=== PATIENT | male | born 1995 | race Caucasian/White ===

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

== ENCOUNTER 2017-02-17 23:10 | Emergency (ER) | payer MEDICAID ==
[2017-02-17 23:19] VITALS: BP 128/71
--- NOTE | 2017-02-17 23:48 | XRAY Preliminary Report ---
Exam: XR Ankle 3 View LT IMPRESSION: No evidence of fracture or dislocation. [facility] SITE ID: [id number]
--- NOTE | 2017-02-17 23:51 | XRAY Report ---
EXAM: LEFT ANKLE RADIOGRAPHY EXAM DATE: 02/17/2017 11:37 PM. CLINICAL HISTORY: Pain swelling s/p glf. COMPARISON: None. TECHNIQUE: 3 views. FINDINGS: Bones: No fracture or focal bony lesion. Joints: No evidence of dislocation. Soft Tissues: There is lateral ankle soft tissue swelling. IMPRESSION: No evidence of fracture or dislocation. [facility] Referring Provider Line: [phone] SITE ID: [id number]
--- NOTE | 2017-02-18 00:11 | ED Physician Documentation ---
PD HPI LOWER EXT INJURY - Stated complaint Stated Complaint: LT ANKLE INJURY - Chief complaint Chief Complaint: Ext Problem - History obtained from History obtained from: Patient, Family - History of Present Illness PD HPI LOW EXT INJURY LOCATION: Left, Ankle Type of injury: Twist Where injury occurred: Home Timing - onset: Today Timing - duration: Hours Timing - details: Abrupt onset, Still present Improved by: Rest, Immobilization Worsened by: Moving, Palpating Associated symptoms: Swelling. No: Weakness Contributing factors: No: Anticoagulated, Work related Similar symptoms before: Diagnosis (ankle sprain/fracture) Recently seen: Emergency Dept (Seen in the ED for ankle sprain on the right.) - Additional information Additional information: 21 y/o male walking down steps twisted his left ankle with swelling and pain. He did have a severe sprain to this ankle and was on crutches for about a month with sprain to the medial ligaments. He has injured his right ankle as well and this healed up normally. Review of Systems Constitutional: denies: Fever Respiratory: denies: Cough GI: denies: Vomiting Skin: denies: Rash Musculoskeletal: reports: Joint pain, Joint swelling, Pain with weight bearing Neurologic: denies: Generalized weakness, Focal weakness, Numbness PD PAST MEDICAL HISTORY - Past Medical History Cardiovascular: None Respiratory: Asthma Neuro: None Endocrine/Autoimmune: None GI: None : None HEENT: None Psych: ADD/ADHD Musculoskeletal: None Derm: None - Past Surgical History Past Surgical History: No - Present Medications Home Medications: Ambulatory Orders Medication Instructions Recorded Confirmed Albuterol 1 puffs INH PRN PRN 02/17/17 02/17/17 - Allergies Allergies/Adverse Reactions: Allergies Allergy/AdvReac Type Severity Reaction Status Date / Time atomoxetine HCl * AdvReac Intermediate Emesis Verified 02/17/17 23:15 [From Strattera] methylphenidate HCl * AdvReac Intermediate Emesis Verified 02/17/17 23:15 [From Concerta] - Social History Does the pt smoke?: Yes Smoking Status: Current every day smoker Does the pt drink ETOH?: No Does the pt have substance abuse?: No - Immunizations Immunizations are current?: Yes - POLST Patient has POLST: No PD ED PE NORMAL - Vitals Vital signs reviewed: Yes (normal ) - General General: Alert and oriented X 3, No acute distress, Well developed/nourished - HEENT HEENT: Atraumatic, PERRL - Respiratory Respiratory: No respiratory distress - Derm Derm: Normal color, Warm and dry, No rash - Extremities Extremities: Other (There is swelling and tenderness to the lateral malleolus and the proximal 5th. There is tenderness medially as well. Distal N/V is intact. ) - Neuro Neuro: No motor deficit, No sensory deficit - Psych Psych: Normal mood, Normal affect Results - Vitals Vitals: Vital Signs - 24 hr 02/17/17 23:12 Temperature 36.3 C L Heart Rate 87 Respiratory 18 Rate Blood Pressure 128/71 O2 Saturation 98 Oxygen O2 Source Room air - Rads (name of study) left ankle Radiology: Prelim report reviewed (Impression: No evidence of fracture or dislocation.), EMP read indepedently (No evidence of fracture to the proximal 5th. ), See rad report Procedures - Splint (location) lft ankle Splint applied by: Tech Type of splint: Ankle airsplint Other: Patient tolerated well, No complications, Neurovascular intact, Good alignment, Crutches provided PD MEDICAL DECISION MAKING - ED course Complexity details: reviewed old records, reviewed results, re-evaluated patient , considered differential, d/w patient, d/w family ED course: 21 y/o male with a left ankle sprain without fracture has a lot of swelling and trouble with this healing in the past. He is placed into an air stirrup and on crutches. Departure - Departure Disposition: 01 Home, Self Care Clinical Impression: Ankle sprain Qualifiers: Encounter type: initial encounter Involved ligament of ankle: calcaneofibular ligament Laterality: left Qualified Code(s): S93.412A - Sprain of calcaneofibular ligament of left ankle, initial encounter Condition: Stable Instructions: ED Sprain Ankle W X Ray Follow-Up: [facility] [Provider Group] Forms: Activity restrictions
== END 2017-02-18 00:23 | disposition home or self-care (01) ==
LOC: ED 23:10
DX: S93.412A Sprain of calcaneofibular ligament of left ankle, initial encounter (principal); X50.1XXA Overexertion from prolonged static or awkward postures, initial encounter; Y93.01 Activity, walking, marching and hiking; Y92.009 Unspecified place in unspecified non-institutional (private) residence as the place of occurrence of the external cause; F17.200 Nicotine dependence, unspecified, uncomplicated
CPT/HCPCS: 29515; 99283

== ENCOUNTER 2018-02-04 19:28 | Emergency (ER) | payer MEDICAID ==
[2018-02-04 19:33] VITALS: BP 126/74
--- NOTE | 2018-02-04 20:22 | ED Physician Documentation ---
PD HPI HEENT - Stated complaint Stated Complaint: SORE THROAT/NO SWALLOW - Chief complaint Chief Complaint: Heent - History obtained from History obtained from: Patient - History of Present Illness Timing - onset: How many weeks ago (1) Timing - duration: Weeks (1) Timing - details: Abrupt onset Pain level now: 6 Location: Throat Improves: Nothing Worsens: Swalllowing Associated symptoms: Fever (subjective) Similar symptoms before: Has not had sx before Recently seen: Not recently seen Review of Systems Constitutional: reports: Fever (subjective), Chills, Sweats Ears: denies: Ear pain Nose: reports: Congestion Throat: reports: Sore throat Respiratory: denies: Dyspnea, Cough GI: denies: Abdominal Pain PD PAST MEDICAL HISTORY - Past Medical History Past Medical History: Yes Cardiovascular: None Respiratory: Asthma Neuro: None Endocrine/Autoimmune: None GI: None : None HEENT: None Psych: ADD/ADHD Musculoskeletal: None Derm: None - Past Surgical History Past Surgical History: No - Present Medications Home Medications: Ambulatory Orders Medication Instructions Recorded Confirmed Albuterol 1 puffs INH PRN PRN 02/17/17 02/17/17 - Allergies Allergies/Adverse Reactions: Allergies Allergy/AdvReac Type Severity Reaction Status Date / Time atomoxetine HCl * AdvReac Intermediate Emesis Verified 02/04/18 19:33 [From Strattera] methylphenidate HCl * AdvReac Intermediate Emesis Verified 02/04/18 19:33 [From Concerta] - Social History Does the pt smoke?: Yes Smoking Status: Current every day smoker Does the pt drink ETOH?: No Does the pt have substance abuse?: Yes Substance Use and Type: Marijuana - Immunizations Immunizations are current?: Yes - POLST Patient has POLST: No PD ED PE NORMAL - Vitals Vital signs reviewed: Yes - General General: Alert and oriented X 3, No acute distress, Well developed/nourished - HEENT HEENT: Ears normal, Moist mucous membranes, Pharynx benign - Neck Neck: Supple, no meningeal sign - Respiratory Respiratory: No respiratory distress, Clear bilaterally Results - Vitals Vitals: Oxygen O2 Source Room air - Labs Labs: Microbiology 02/04/18 19:34 Group A Strep Throat Culture - Final Throat Beta Hemolytic Strep Group A Laboratory Tests 02/04/18 19:34 Group A Strep Rapid Negative PD MEDICAL DECISION MAKING - ED course Complexity details: reviewed results, re-evaluated patient, considered differential, d/w patient Departure - Departure Disposition: 01 Home, Self Care Clinical Impression: Pharyngitis Qualifiers: Pharyngitis/tonsillitis etiology: unspecified etiology Qualified Code(s): J02.9 - Acute pharyngitis, unspecified Condition: Good Instructions: ED Pharyngitis Viral Report Pending Follow-Up: [facility] [Provider Group] [facility] [Provider Group] Comments: Take ibuprofen 400 mg every 4 hours or 600mg every 6 hours as needed for pain or fever. Forms: Activity restrictions Discharge Date/Time: 02/04/18 20:57
[2018-02-04] MEDS ORDERED: HYDROcod/ACET 5/325 Prepack 4 PO STA (20:35)
[2018-02-04] MEDS ORDERED: IBUPROFEN 600 MG TABLET PO STA (20:35)
[2018-02-04] MEDS ORDERED: DEXAMETHASONE 10 MG/ML VIAL PO STA (20:35)
== END 2018-02-04 20:57 | disposition home or self-care (01) ==
LOC: ED 19:28
DX: J02.9 Acute pharyngitis, unspecified (principal); J45.909 Unspecified asthma, uncomplicated; F17.200 Nicotine dependence, unspecified, uncomplicated
CPT/HCPCS: 87070; 87077; 87430; 99282; 99283; A9270

== ENCOUNTER 2018-02-15 00:26 | Outpatient (CLI) | payer MEDICAID | END 2018-02-15 00:27 | disposition critical access hospital (66) | LOC: EMS 00:26 | PROVIDERS: ATTEND Surgery | DX: R45.6 Violent behavior (principal) | CPT/HCPCS: A0425; A0429 ==

== ENCOUNTER 2018-02-15 00:42 | Emergency (ER) | payer MEDICAID ==
[2018-02-15 01:17] LABS: BASOPHILS # (AUTO) 0.1 10^3/uL (0.0-0.1); EOSINOPHILS # (AUTO) 0.2 10^3/uL (0.0-0.7); EOSINOPHILS % (AUTO) 1.3 %; HGB - HEMOGLOBIN 12.8 g/dL (14.0-18.0); LYMPHOCYTES # (AUTO) 3.2 10^3/uL (1.5-3.5); LYMPHOCYTES % (AUTO) 21.3 %; MEAN CORPUSCULAR HGB CONC 32.7 g/dL (32.0-36.0); MEAN CORPUSCULAR VOLUME 88.9 fL (80.0-94.0); MEAN PLATELET VOLUME 7.8 fL (7.4-11.4); MONOCYTES # (AUTO) 1.2 10^3/uL (0.0-1.0); MONOCYTES % (AUTO) 8.1 %; NEUTROPHILS # (AUTO) 10.3 10^3/uL (1.5-6.6); NEUTROPHILS % (AUTO) 68.3 %; PLT - PLATELET COUNT 373 10^3/uL (130-450); RED CELL DISTRIBUTION WIDTH 13.2 % (12.0-15.0); WHITE BLOOD COUNT 15.1 x10^3/uL (4.8-10.8)
[2018-02-15 01:18] LABS: MUDS CUTOFF CONCENTRATIONS CUTOFF CONC BELOW:
[2018-02-15 01:22] LABS: ALBUMIN 4.2 g/dL (3.2-5.5); ALBUMIN/GLOBULIN RATIO 1.4 (1.0-2.2); BILIRUBIN,TOTAL 0.6 mg/dL (0.2-1.0); CALCIUM 8.6 mg/dL (8.5-10.3); CREATININE 0.8 mg/dL (0.6-1.2); TOTAL PROTEIN 7.3 g/dL (6.7-8.2)
[2018-02-15 01:29] LABS: AMPHETAMINE SCREEN,URINE NEGATIVE (NEGATIVE); BENZODIAZEPINES SCREEN, URINE NEGATIVE (NEGATIVE); COCAINE SCREEN URINE NEGATIVE (NEGATIVE); METHADONE SCREEN, URINE NEGATIVE (NEGATIVE); METHAMPHETAMINES SCREEN, URINE NEGATIVE (NEGATIVE); OPIATE SCREEN, URINE NEGATIVE (NEGATIVE); OXYCODONE SCREEN, URINE NEGATIVE (NEGATIVE); PROPOXYPHENE SCREEN, URINE NEGATIVE (NEGATIVE); TRICYCLIC ANTIDEPRESSANT,URINE NEGATIVE (NEGATIVE)
--- NOTE | 2018-02-15 01:31 | ED Physician Documentation ---
PD HPI ALTERED MENTAL STATUS - Stated complaint Stated Complaint: AGGRESSIVE/ETOH - Chief complaint Chief Complaint: MHE - History obtained from History obtained from: EMS, Police - History of Present Illness Timing - onset: Today Contributing factors: Intoxicated [place]line status: Alert and oriented X 3 Recently seen: Not recently seen - Additional information Additional information: Patient is a 22 year old male brought in by police and ems for altered mental status, agitation and vomiting. according to ems and police, neighbors or roomates called police becasue the patient was aggravated and aggressive. patient was found to be intoxicated and vomiting. so he was brought in for evaluation. Upon initial evaluation in the emergency department patient was intoxicated but maintaining his airway. Review of Systems Unable to obtain: Intoxicated PD PAST MEDICAL HISTORY - Past Medical History Past Medical History: Yes Cardiovascular: None Respiratory: Asthma Endocrine/Autoimmune: None GI: None : None HEENT: None Psych: ADD/ADHD Musculoskeletal: None Derm: None - Past Surgical History Past Surgical History: No - Present Medications Home Medications: Ambulatory Orders Medication Instructions Recorded Confirmed Albuterol 1 puffs INH PRN PRN 02/17/17 02/17/17 - Allergies Allergies/Adverse Reactions: Allergies Allergy/AdvReac Type Severity Reaction Status Date / Time atomoxetine HCl * AdvReac Intermediate Emesis Verified 02/04/18 19:33 [From Strattera] methylphenidate HCl * AdvReac Intermediate Emesis Verified 02/04/18 19:33 [From Concerta] - Social History Does the pt smoke?: Yes Smoking Status: Current every day smoker Does the pt drink ETOH?: No Does the pt have substance abuse?: Yes - Immunizations Immunizations are current?: Yes - POLST Patient has POLST: No PD ED PE NORMAL - HEENT HEENT: Atraumatic - Cardiac Cardiac: RRR - Respiratory Respiratory: No respiratory distress - Abdomen Abdomen: Soft, Non distended - Extremities Extremities: No deformity, No tenderness to palpate PD ED PE EXPANDED - General General: Other (intoxicated, minimally responsive vomitus around mouth) - GCS Eye Opening: To Pain Motor: Localizes to Pain Verbal: Incomprehensible Total: 9 - Psych Psych: Intoxicated / AOB Results - Vitals Vitals: Vital Signs - 24 hr 02/15/18 02/15/18 02/15/18 00:42 01:20 01:53 Temperature 36.3 C L Heart Rate 72 72 73 Respiratory 22 18 19 Rate Blood Pressure 110/61 104/54 L 107/56 L O2 Saturation 97 97 97 02/15/18 02/15/18 02/15/18 03:01 05:01 06:08 Temperature Heart Rate 72 62 62 Respiratory 18 16 17 Rate Blood Pressure 100/50 L 103/51 L 107/65 O2 Saturation 97 99 100 Oxygen O2 Source Room air - Labs Labs: Laboratory Tests 02/15/18 02/15/18 02/15/18 01:00 01:00 01:08 WBC 15.1 H RBC 4.40 L Hgb 12.8 L Hct 39.1 L MCV 88.9 MCH 29.0 MCHC 32.7 RDW 13.2 Plt Count 373 MPV 7.8 Neut # 10.3 H Lymph # 3.2 Butts # 1.2 H Eos # 0.2 Baso # 0.1 Absolute Nucleated RBC 0.01 Nucleated RBC % 0.0 Sodium 137 Potassium 3.1 L Chloride 107 Carbon Dioxide 21 Anion Gap 9.0 BUN 21 H Creatinine 0.8 Estimated GFR (MDRD) 123 Glucose 97 Calcium 8.6 Total Bilirubin 0.6 AST 31 ALT 16 Alkaline Phosphatase 52 Total Protein 7.3 Albumin 4.2 Globulin 3.1 Albumin/Globulin Ratio 1.4 Lipase 22 Urine Opiates Screen NEGATIVE Ur Oxycodone Screen NEGATIVE Urine Methadone Screen NEGATIVE Ur Propoxyphene Screen NEGATIVE Ur Barbiturates Screen NEGATIVE Ur Tricyclics Screen NEGATIVE Ur Phencyclidine Scrn NEGATIVE Ur Amphetamine Screen NEGATIVE U Methamphetamines Scrn NEGATIVE U Benzodiazepines Scrn NEGATIVE Urine Cocaine Screen NEGATIVE U Cannabinoids Screen POSITIVE H Ethyl Alcohol 306.8 PD MEDICAL DECISION MAKING - ED course Complexity details: reviewed old records, reviewed results, re-evaluated patient , considered differential ED course: Patient was seen and examined at bedside. Patient was severely intoxicated but was maintaining his airway. labs were drawn and urine was collected. patient was treated with zofran and a fluid bolus. Patient was observed in the emergency department for 6 hours but was still intoxicated. Patient was signed over to Dr. Golden pending sobriety and likely discharge home. Departure - Departure Clinical Impression: Alcoholic intoxication Condition: Stable Instructions: ED Alcohol Intoxication Follow-Up: primary, care provider [Other] Comments: Your symptoms tonight were from excessive alcohol consumption. Aside from being illegal it is bad for your physical and mental health. You should refrain from drinking so excessively. You may return to the emergency department at any time for new, worsening or uncontrollable symptoms.
[2018-02-15] MEDS ORDERED: SODIUM CHLORIDE 0.9% 1,000 ML IV ONE (03:44)
[2018-02-15 06:53] VITALS: BP 100/61
== END 2018-02-15 07:12 | disposition home or self-care (01) ==
LOC: EDBD → EDUNIT# → ED 00:42
DX: F10.129 Alcohol abuse with intoxication, unspecified (principal); J45.909 Unspecified asthma, uncomplicated; F17.200 Nicotine dependence, unspecified, uncomplicated
CPT/HCPCS: 36415; 51701; 80053; 80306; 80320; 83690; 85025; 96360; 99284; 99285